=== PATIENT | female | born 1985 | race Caucasian/White ===

== ENCOUNTER 2016-12-30 09:11 | Emergency (ER) | payer SELFPAY ==
[~2016-12-30] VITALS: Ht 167.6 cm; Wt 50.3 kg
[2016-12-30 09:16] VITALS: Ht 167.6 cm; Wt 50.3 kg
--- NOTE | 2016-12-30 10:10 | ERD ---
ER Documentation Chief Complaint Chief Complaint nausea and dizziness onset today , denies bryon ginna HPI 31 years old female, with history of positional vertigo, presents to the emergency department with her father, complaining of progressive worsening of spinning sensation for the last 3 days, associated with persistent nausea since this morning. The patient refers that the last episode was last year and she uses meclizine as needed but she has not tried anything yet. She is complaining of a runny nose and congestion for the last 5 days. Denies fevers, chills, no palpitations, no shortness of breath ROS SYSTEMIC symptoms: no fever, chills, no night sweats, no weight loss EYE symptoms: No blurred vision, no eye discharge OTOLARYNGEAL symptoms: No hearing loss. No ear pain, no sore throat CARDIOVASCULAR symptoms: No chest pain or discomfort, no palpitations. PULMONARY symptoms: No dyspnea, no cough, no wheezing. GASTROINTESTINAL symptoms: No abdominal pain, no nausea, no vomiting, no diarrhea MUSCULOSKELETAL symptoms: No arthralgias, no muscle aches. NEUROLOGY symptoms: No confusion, no syncope, no numbness or tingling. SKIN no rashes All systems reviewed and are negative except as per history of present illness. Medications Home Meds Active Scripts Ondansetron Hcl* (Ondansetron Hcl*) 4 Mg Tablet, 4 MG PO Q6H Y for NAUSEA, #10 TAB Prov:ZOIE THOMPSON MD 12/30/16 Alprazolam* (Xanax*) 0.25 Mg Tablet, 0.25 MG PO Q8H Y for vertigo for 5 Days, # 15 TAB Prov:ZOIE THOMPSON MD 12/30/16 Meclizine Hcl* (Antivert*) 12.5 Mg Tab, 12.5 MG PO Q6H Y for DIZZINESS, #20 TAB Prov:OZIE THOMPSON MD 12/30/16 Physical Exam Vitals Vital Signs Date Time Temp Pulse Resp B/P Pulse Ox O2 Delivery O2 Flow Rate FiO2 12/30/16 11:06 77 18 128/74 99 Room Air 12/30/16 09:16 98.1 62 18 126/60 100 Physical Exam Patient is in mild distress due to nausea, vital signs stable. Alert and fully oriented. EYES: PERRLA, EOMI, Sclera and conjunctiva appear normal. HEART: RRR, no rubs, murmurs, clicks or gallops. LUNGS: Clear to auscultation. ENT: Exam deferred, the patient prefers to be in a decubitus position for comfort Results 24 hrs Current Medications Medications (Trade) Dose Ordered Sig/Zia Route PRN Reason Start Time Stop Time Status Last Admin Dose Admin Ondansetron HCl (Zofran Odt) 4 mg ONCE STAT ODT 12/30/16 10:18 12/30/16 10:20 DC 12/30/16 10:25 Alprazolam (Xanax) 0.25 mg ONCE ONCE PO 12/30/16 10:30 12/30/16 10:31 DC 12/30/16 10:25 Meclizine HCl (Antivert) 25 mg ONCE ONCE PO 12/30/16 11:00 12/30/16 11:01 DC 12/30/16 10:34 Procedures/MDM 31y/o male patient with history of benign positional vertigo, presents to the ED c/o nausea and worsening of spinning sensation for 3 days. Vital signs stable, Physical exam unremarkable, neurovascular intact. Differential diagnosis include but not limited to: Migraine with vertigo, Mnire's disease, benign positional vertigo, ear infection, barotrauma: Less likely stroke. Physical examination and clinical presentation consistent most likely with benign positional vertigo. During the ED course the patient received treatment with meclizine, Xanax and ondansetron presenting overall improvement of the symptoms. Medical impression discussed with patient who agrees with management. The patient will be discharged home with a Rx for meclizine, Xanax and ondansetron Side effects of prescribed medications (drowsiness, constipation, habituation) were reviewed. If symptoms persist, worsen or new symptoms develop, then patient is instructed to follow-up with the primary care provider. If the patient is unable to see the primary care provider, then return to the ED immediately. Departure Diagnosis: Primary Impression: Benign paroxysmal positional vertigo Condition: Stable ZOIE THOMPSON MD Dec 30, 2016 10:09
[2016-12-30] MEDS ORDERED: ONDANSETRON (ODT) 4 MG TAB ODT STA (10:18)
[2016-12-30] MEDS ORDERED: ALPRAZOLAM 0.25 MG TAB PO ONE (10:30)
[2016-12-30] MEDS ORDERED: ONDA4TAB95 PO (10:58)
[2016-12-30] MEDS ORDERED: MECL12.574 PO (10:58)
[2016-12-30] MEDS ORDERED: ALPR0.25 PO (10:58)
[2016-12-30] MEDS ORDERED: MECLIZINE 12.5 MG TAB PO ONE (11:00)
[2016-12-30 11:06] VITALS: BP 128/74; PULSE 77; RESP 18
== END 2016-12-30 11:06 | disposition home or self-care (01) ==
LOC: FTE 09:11
DX: H81.10 Benign paroxysmal vertigo, unspecified ear (principal)
CPT/HCPCS: 99284